=== PATIENT | male | born 1950 | race Caucasian/White ===

== ENCOUNTER 2017-07-17 06:31 | Inpatient (IN) | payer BC, OTHER ==
[~2017-07-17] VITALS: Ht 177.8 cm; Wt 103.0 kg
--- NOTE | ~2017-07-17 | EKG ---
[address] [place] [place] [address] ELECTROCARDIOGRAM REPORT Name: TAMMI COOPER Room #: 364-P ADM IN M.R.#: [id number] Admission: 07/17/17 Attend Phys: Pernell Shepherd DO Discharge: Date of : 50 Report #: [id number] THIS REPORT FOR: //name// [facility] ED Test Date: 2017-07-17 Test Time: 06:37:47 Pat Name: TAMMI COOPER Department: Room: 364 Gender: M Human Services Care Specialist: CAMILLA : 1950 Requested By: Onel Knapp Order Number: [id number] MD: Zhen Nieto Measurements Intervals [place] Rate: 59 P: 8 IA: 174 QRS: 6 QRSD: 105 T: 40 QT: 433 QTc: 429 Interpretive Statements Sinus rhythm No significant abnormality No previous ECG available for comparison Electronically Signed On 07-17-2017 15:07:46 CDT by Zhen Nieto [email or web address] <ELECTRONICALLY SIGNED> By: Zhen Nieto MD, [facility] 07/17/17 1507 0637 0637 Zhen Nieto MD, FACC /EPI
--- NOTE | ~2017-07-17 | EXE ---
[facility] [place] [address] STRESS ECHOCARDIOGRAM Name: TAMMI COOPER Room #: 364-P [facility] IN M.R.#: [id number] Admission: 07/17/17 Attend Phys: Pernell Shepherd, Discharge: Date of : 50 Date of Service: 07/17/17 1207 Report #: [id number] THIS REPORT FOR: //name// APPROVED REPORT Exam: Stress Echocardiogram Indication: Chest pain Patient Location: ER Stress Nurse: Marilee Spivey RN Room #: 6 Status: routine Ht: 5 ft 10 in HR: 57 bpm BP: 116/73 mmHg Rhythm: NSR Medical History Medical History: none Allergies: No known drug allergies Procedure The patient underwent an Exercise Stress Test using the Edison Protocol. Blood pressure, heart rate, and EKG were monitored. An Echocardiogram was performed by medical equipment repair technician in four stages in quad fashion. At peak stress, four selected images were obtained and placed side by side with resting images for comparison. Stress Test Details Stress Test: Exercise stress testing was performed using a Edison protocol. HR Resting HR: 57 bpm Max Heart Rate (APMHR): 153 bpm Max HR Achieved: 153 bpm Target HR (85% APMHR): 130 bpm % of APMHR: 100 Recovery HR: 77 bpm HR response to stress: Normal HR response to stress BP Resting BP: 116/73 mmHg Max BP: 172/78 mmHg Recovery BP: 138/82 mmHg ECG Clinical [facility] [address] [place] [address] STRESS ECHOCARDIOGRAM Name: TAMMI COOPER Room #: 364-P ADM IN M.R.#: [id number] Admission: 07/17/17 Attend Phys: Pernell Shepherd, Discharge: Date of : 50 Date of Service: 07/17/171206 Report #: [id number] Reason for Termination: moderate fatigue (arms and legs), maximum heart rate achieved Stress Symptoms: Leg Fatigue Exercise duration: 10 min 26 sec Highest Stage Achieved: Stage 4: 4.2 mph at 16% grade. Exercise capacity: 13.70 METs Pre-Stress Echo The resting Echocardiogram showed normal left ventricular contractility with an estimated Ejection Fraction of about 55%. Mild MR, trivial TR Post-Stress Echo The stress Echocardiogram showed normal left ventricular contractility with an estimated Ejection Fraction of about 60%. Conclusion Clinical Response: Non-ischemic Exercise Capacity: Average Stress ECG Response: Non-ischemic Stress Echo Images: Non-ischemic Other Information Study Quality: Adequate <ELECTRONICALLY SIGNED> By: Ricardo Calles MD, [facility] 07/17/171206 06 06 Ricardo Calles MD, FACC /INF
[2017-07-17 06:33] VITALS: BP 110/65
[2017-07-17 06:59] LABS: ABSOLUTE NEUTROPHILS 3.1 thou/uL (1.4-8.2); BASOPHILS 0.9 % (0.0-2.0); EOSINOPHILS 3.6 % (0.0-3.0); HEMATOCRIT 43.5 % (42.0-52.0); HEMOGLOBIN 15.1 gm/dL (14.0-18.0); LYMPHOCYTES 25.5 % (24.0-44.0); MCH 33.4 pg (26.0-34.0); MCHC 34.8 g/dL (28.0-37.0); MONOCYTES 8.7 % (1.0-8.0); PLATELET COUNT 254 thou/uL (150-400); POLYS 61.3 % (36.0-66.0); RBC 4.53 mil/uL (4.50-6.00); RDW 13.7 % (10.5-14.5)
[2017-07-17 07:14] LABS: ANION GAP 6 mmol/L (7-16); BUN 25 mg/dL (7-18); CALCIUM 8.9 mg/dL (8.5-10.1); CHLORIDE 106 mmol/L (98-107); CO2 26 mmol/L (21-32); CREATININE 1.5 mg/dL (0.7-1.3); GLUCOSE 132 mg/dL (74-106); POTASSIUM 4.1 mmol/L (3.5-5.1); SODIUM 138 mmol/L (136-145)
[2017-07-17] MEDS ORDERED: FISH OIL 1,001000 M2 PO (07:17)
[2017-07-17] MEDS ORDERED: SYNTHROID50 MCG PO (07:17)
[2017-07-17] MEDS ORDERED: ASPIR 8181 MG PO (07:17)
[2017-07-17] MEDS ORDERED: SERTRALINE HCL50 MG PO (07:18)
[2017-07-17] MEDS ORDERED: LUNESTA3 MG PO (07:18)
[2017-07-17 07:20] LABS: MANUAL DIFF NO
[2017-07-17 07:23] LABS: ALBUMIN 3.7 g/dL (3.4-5.0); ALKALINE PHOSPHATASE 80 U/L (46-116); MAGNESIUM 2.1 mg/dL (1.8-2.4); SGOT 30 U/L (15-37); SGPT 23 U/L (30-65); TOTAL BILIRUBIN 0.7 mg/dL (<0.1-1.0); TOTAL PROTEIN 7.1 g/dL (6.4-8.2); TROPONIN-I < 0.04 ng/mL (<0.06)
[2017-07-17 10:01] LABS: CHOLESTEROL 171 mg/dL (<200); HDL CHOLESTEROL 33 mg/dL (>40); LDL CHOLESTEROL 88 mg/dL (<100); TC:HDL 5.2 Ratio (Not establshd); TRIGLYCERIDE 253 mg/dL (<150); VLDL 51 mg/dL (<40)
[2017-07-17 20:00] VITALS: BP 125/73
[2017-07-18] VITALS: BP 120/74
[2017-07-18 04:20] VITALS: BP 119/76
[2017-07-18 04:46] LABS: ABSOLUTE NEUTROPHILS 3.7 thou/uL (1.4-8.2); BASOPHILS 0.8 % (0.0-2.0); EOSINOPHILS 3.4 % (0.0-3.0); HEMATOCRIT 42.4 % (42.0-52.0); HEMOGLOBIN 14.6 gm/dL (14.0-18.0); LYMPHOCYTES 23.6 % (24.0-44.0); MCH 33.1 pg (26.0-34.0); MCHC 34.4 g/dL (28.0-37.0); MCV 96.2 fL (80.0-100.0); MONOCYTES 10.6 % (1.0-8.0); PLATELET COUNT 226 thou/uL (150-400); POLYS 61.6 % (36.0-66.0); WBC 5.9 thou/uL (4.0-11.0)
[2017-07-18 04:53] LABS: CALCIUM 8.7 mg/dL (8.5-10.1); CREATININE 1.5 mg/dL (0.7-1.3); MANUAL DIFF NO
[2017-07-18 07:59] VITALS: BP 124/77
[2017-07-18 12:24] VITALS: BP 129/85
[2017-07-18 14:17] VITALS: BP 129/85
== END 2017-07-18 14:40 | disposition home or self-care (01) | DRG 312 ==
LOC: ER 06:31 → EROBS 09:08 → 3W 09:08 → EROBS 11:24 → 3W 11:24
PROVIDERS: Emergency Medicine; Family Medicine
DX: R55 Syncope and collapse (principal); N17.9 Acute kidney failure, unspecified; R07.89 Other chest pain; R61 Generalized hyperhidrosis; R42 Dizziness and giddiness; E78.1 Pure hyperglyceridemia; R73.9 Hyperglycemia, unspecified; N18.9 Chronic kidney disease, unspecified; Z79.82 Long term (current) use of aspirin; Z79.899 Other long term (current) drug therapy; Z85.46 Personal history of malignant neoplasm of prostate; Z86.718 Personal history of other venous thrombosis and embolism; Z86.711 Personal history of pulmonary embolism; Z85.72 Personal history of non-Hodgkin lymphomas; Z90.79 Acquired absence of other genital organ(s); Z90.49 Acquired absence of other specified parts of digestive tract; Z82.49 Family history of ischemic heart disease and other diseases of the circulatory system; Z82.79 Family history of other congenital malformations, deformations and chromosomal abnormalities
CPT/HCPCS: 10080